=== PATIENT | male | born 1945 | race Caucasian/White ===

== ENCOUNTER 2017-12-21 09:57 | Emergency (ER) | payer MEDICARE, OTHER ==
[2017-12-21] MEDS ORDERED: Aspirin 81 mg CHEW TAB* 81 MG TAB.CHEW PO ONE (10:24)
--- NOTE | 2017-12-21 10:24 | ED ---
HPI Chest Pain - HPI Summary HPI Summary: This patient is a 72 year old M [facility] by with a chief complaint of intermittent right anterior chest pain described as pressure , radiating to the jaw lasting for a few minutes at the time for the past two weeks with increasing frequency. Pain is 2/10 in severity. Reports SOB and headache with onset of chest pain. Reports increased fatigue and decreased exercise tolerance. Denies history of blood clots. Had cardiac stent placed in 2013. Reports significant FMHx for cardiac disease. Patient has taken 81mg of ASA today. Patient went to [facility] roughly 7 days ago and was told to come to the ED is symptoms persist. Dr. Zamarripa is patient's sole buffer. - History of Current Complaint Chief Complaint: EDChestPainROMI Time Seen by Provider: 12/21/17 10:11 Hx Obtained From: Patient Onset/Duration: Started Weeks Ago Timing: Intermittent, Lasting Minutes Pain Intensity: 2 Pain Scale Used: 0-10 Numeric Chest Pain Location: Right Anterior Chest Pain Radiates: Yes Chest Pain Radiates To:: Jaw Character: Pressure/Squeezing Aggravating Factor(s): Nothing Alleviating Factor(s): Nothing Associated Signs and Symptoms: Positive: Chest Pain, Headaches, Shortness of Breath - Allergy/Home Medications Allergies/Adverse Reactions: Allergies Allergy/AdvReac Type Severity Reaction Status Date / Time atorvastatin [From Lipitor] Allergy Muscle Ache Verified 12/21/17 10:42 nefazodone [From Serzone] Allergy See Comment Verified 12/21/17 10:42 rofecoxib [From Vioxx] Allergy Difficulty Verified 12/21/17 10:42 Breathing PMH/Surg Hx/FS Hx/Imm Hx Endocrine/Hematology History: Denies: Hx Diabetes Cardiovascular History: Reports: Hx Coronary Artery Disease, Hx Hypercholesterolemia, Hx Hypertension Denies: Hx Angina, Hx Myocardial Infarction, Hx Valvular Heart Disease Respiratory History: Denies: Hx Asthma, Hx Chronic Obstructive Pulmonary Disease (COPD) GI History: Reports: Hx Diverticulosis History: Reports: Hx Kidney Stones, Hx Renal Disease - kidney stones Psychiatric History: Reports: Hx Depression - Surgical History Surgery Procedure, Year, and Place: lt hip,rotar cuff left,cardiac stent, HX LEFT HIP AND FEMUR FX Infectious Disease History: No Infectious Disease History: Denies: Traveled Outside the [place] in Last 30 Days - Family History Known Family History: Positive: Cardiac Disease - father - CAD, mother of [place] age 72, sister [place], Other - father - [place] - Social History Alcohol Use: None Substance Use Type: Reports: None Smoking Status (MU): Never Smoked Tobacco Have You Smoked in the Last Year: No Review of Systems Positive: Fatigue, Other - decreased exercise tolerance Positive: Dental Pain Positive: Chest Pain Positive: Shortness Of Breath All Other Systems Reviewed And Are Negative: Yes Physical Exam - Summary Physical Exam Summary: General: well-appearing, no pain distress Skin: warm, color reflects adequate perfusion, dry Head: normal Eyes: EOMI, FATUMA ENT: normal Neck: supple, nontender Respiratory: CTA, breath sounds present Cardiovascular: RRR Abdomen: soft, nontender Bowel: present Musculoskeletal: normal, strength/ROM intact Neurological: sensory/motor intact, A&O x3 Psychological: affect/mood appropriate Triage Information Reviewed: Yes Vital Signs On Initial Exam: Initial Vitals Temp Pulse Resp BP Pulse Ox 97.8 F 63 16 132/81 97 12/21/17 09:57 12/21/17 09:57 12/21/17 09:57 12/21/17 09:57 12/21/17 09:57 Vital Signs Reviewed: Yes - Hesham Coma Scale Best Eye Response: 4 - Spontaneous Best Motor Response: 6 - Obeys Commands Best Verbal Response: 5 - Oriented Coma Scale Total: 15 Diagnostics - Vital Signs Vital Signs Temp Pulse Resp BP Pulse Ox 12/21/17 09:57 97.8 F 63 16 132/81 97 - Laboratory Result Diagrams: 12/21/17 10:33 12/21/17 10:33 Lab Statement: Any lab studies that have been ordered have been reviewed, and results considered in the medical decision making process. - Radiology CXR Radiology Interpretation Completed By: Radiologist - #. Stigmata of probable obstructive lung disease. #. No acute cardiopulmonary process evident. ED Physician has reviewed this report. - CT Head/Neck CTA CT Interpretation Completed By: Radiologist - #. Normal variation as described. #. No intracranial arterial large vessel occlusion or hemodynamically significant stenosis. ED Physician has reviewed this report. Chest CTA CT Interpretation Completed By: Radiologist - #. Small burden of acute pulmonary emboli at the RIGHT middle lobe. #. Results discussed with Dr. Olea in the ED 12/21/2017 1:10 PM EDT ED Physician has reviewed this report. - EKG 1035 Cardiac Rate: Bradycardia - [address] Segment: Normal Ectopy: None Re-Evaluation - Re-Evaluation First Re-Evaluation Time: 13:35 Comment: Patient is informed of results and admission. Chest Pain Course/Dx - Course Course Of Treatment: DISCUSSED RESULTS WITH THE PATIENT AND CONSULTED HOSPITALIST. THE HOSPITALIST DISCHARGED THE PATIENT. - Diagnoses Provider Diagnoses: Pulmonary embolism, Chest pain - Provider Notifications Discussed Care Of Patient With: David Wilson MD - hospitalist Time Discussed With Above Provider: 13:15 Instructed by Provider To: Admit As Inpatient - will see in ED Discharge - Sign-Out/Discharge Documenting (check all that apply): Patient Departure - Discharge Plan Condition: Stable Disposition: HOME Prescriptions: Nitroglycerin TAB 0.4 MG* 0.4 mg SL . NEEDED PRN #20 tab PRN Reason: Pain - Chest Rivaroxaban TAB(*) [Xarelto 15 mg(*)] 15 mg PO BID #42 tab Rivaroxaban TAB(*) [Xarelto 20 mg] 20 mg PO DAILY #30 tab Patient Education Materials: Pulmonary Embolism (ED) Referrals: Mason Arias DO [Medical Doctor] - 12/27/17 Jaciel Benitez MD [Primary Care Provider] - (Please see within the next 5 days. ) - Billing Disposition and Condition Condition: STABLE Disposition: Home - Attestation Statements Document Initiated by Scribe: Yes Documenting Scribe: Lisa Flores Provider For Whom Scribe is Documenting (Include Credential): Dev Mello MD Scribe Attestation: I, Lisa Flores, scribed for Dev Mello MD on 12/21/17 at 1839. Scribe Documentation Reviewed: Yes Provider Attestation: The documentation as recorded by the Lisa fall accurately reflects the service I personally performed and the decisions made by me, Dev Mello MD
[2017-12-21] MEDS ORDERED: NS 0.9% 1000 ML* 1,000 ML IV SCH (10:30)
[2017-12-21 10:43] LABS: ABS Basophils 0.1 10^3/ul (0-0.2); ABS Eosinophils 0.1 10^3/ul (0-0.6); ABS Lymphocytes 1.4 10^3/ul (1.0-4.8); ABS Monocytes 0.6 10^3/ul (0-0.8); ABS Neutrophils 4.2 10^3/ul (1.5-7.7); ABS Nucleated RBC 0 10^3/ul; Eosinophil % 0.9 % (0-6); Hematocrit 41 % (42-52); Lymphocyte % 22.6 % (25-47); Mean Corpuscular HGB Conc 34 g/dl (31-36); Mean Corpuscular Hemoglobin 33 pg (27-31); Mean Corpuscular Volume 95 fL (80-94); Mean Platelet Volume 8.2 um3 (7.4-10.4); Nucleated Red Blood Cells % 0.1; Platelet Count 174 10^3/ul (150-450); Red Blood Count 4.29 10^6/ul (4.00-5.40); Red Cell Distribution Width 13 % (10.5-15); White Blood Count 6.3 10^3/ul (3.5-10.8)
--- NOTE | 2017-12-21 10:46 | RAD ---
Indication: Chest pain that began intermittently a couple of weeks ago. Coronary artery disease. Comparison: January 09, 2016 CT Technique: Upright AP 1030 hours Report: Elevated lung volumes and rarefaction of the upper lung zone interstitial markings. No focal pulmonary lesion, compelling alveolar consolidation, pleural effusion, pneumothorax. Negative for cardiomegaly. Unremarkable central pulmonary vasculature and mediastinal contours accounting for leftward rotation. IMPRESSION: #. Stigmata of probable obstructive lung disease. #. No acute cardiopulmonary process evident.
[2017-12-21 10:58] LABS: INR 0.88 (0.77-1.02)
[2017-12-21 11:01] LABS: EGFR Non-African American 80.4 (>60)
[2017-12-21] MEDS ORDERED: NS 0.9% 1000 ML* 1,000 ML IV ONE (11:21)
[2017-12-21] MEDS ORDERED: Iohexol 350* (CONTRAST) 500 ML MDV IV ONE ×2 (11:29→11:33)
--- NOTE | 2017-12-21 13:08 | RAD ---
INDICATION: Head and neck pain. Positive d-dimer. Cardiac disease. COMPARISON: No relevant prior exams available on the [facility] [place] [place] [facility] for comparison. TECHNIQUE: Noncontrast CT of the head. Subsequently CT images were obtained from the aortic arch to the vertex of the head with 80 mL Omnipaque 350 IV contrast. Arterial phase of enhancement. Multiplanar reformation including maximum intensity projection. 3-D arterial volume rendering. Stenosis estimations based on denominator of distal arterial diameter. NECK ANGIOGRAM REPORT: Incidental note of heterogeneous thyroid gland with 0.9 cm nodule at the RIGHT thyroid lobe. Negative for ostial stenosis of the aortic arch branch vessels. Minimal atherosclerotic plaque at the RIGHT carotid bulb and proximal internal carotid artery without resulting stenosis by NASCET criteria. Artifact from dental hardware partially obscures the mid segments of the bilateral internal carotid arteries. Mild calcific and noncalcific plaque at the LEFT carotid bulb and proximal internal carotid artery without resulting stenosis by NASCET criteria. Calcific plaque at the ostium of the RIGHT vertebral artery with small vessel size limiting quantification of degree of stenosis. Normal opacification of the RIGHT and dominant LEFT vertebral arteries with both vertebral arteries contributing to the basilar artery. Mild calcific plaque at the distal segment of the LEFT vertebral artery with up to 50% stenosis resulting. No arterial dissection evident. Markedly severe degenerative spondylosis at C4-C5 through C6-C7 with associated mild acquired central canal stenosis and severe LEFT and moderate RIGHT foraminal stenosis at all 3 levels. NECK ANGIOGRAM IMPRESSION: #. Negative for carotid stenosis by NASCET criteria. #. Calcific plaque at the ostium of the RIGHT vertebral artery with small vessel size limiting quantification of degree of stenosis. #. Mild calcific plaque at the distal segment of the LEFT vertebral artery with up to 50% stenosis resulting. Noncontrast head CT REPORT: Unremarkable cerebral sulci, ventricles, and basal cisterns for age. Negative for davison matter white matter obscuration, intra or extra-axial hemorrhage, or mass effect. Unremarkable orbital contents. Unremarkable calvarium and skull base and clear visualized paranasal sinuses and mastoid air spaces. Unremarkable scalp. HEAD ANGIOGRAM REPORT: Calcific plaque at the carotid siphons with suggestion of less than 50% stenosis resulting. Unremarkable M1 and M2 segments of the middle cerebral arteries. 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 Unremarkable basilar artery and cerebellar artery origins. Patent bilateral posterior cerebral arteries are supplied primarily by the posterior circulation with normal variant hypoplastic posterior communicating arteries. No intracranial aneurysm or vascular malformation evident. Normal opacification of the dural venous sinuses. HEAD ANGIOGRAM IMPRESSION: #. Normal variation as described. #. No intracranial arterial large vessel occlusion or hemodynamically significant stenosis. CPT II: CPT II Codes: 3100F
--- NOTE | 2017-12-21 13:14 | RAD ---
INDICATION: Head and neck pain. Chest pain. Positive d-dimer. COMPARISON: December 20, 2009 CT angiogram. TECHNIQUE: Multidetector CT images were obtained from the lung apices to the upper abdomen with 66 mL Omnipaque 350 IV contrast. Pulmonary angiogram protocol. Multiplanar reformation including with maximum intensity projection. REPORT: Mild atelectasis at the azygos esophageal recess secondary to volume loss resulting from thoracic spine degenerative spondylosis and mild LEFT greater than RIGHT dependent atelectasis. No suspicious focal pulmonary lesions. Negative for pleural effusions or pneumothorax. Negative for thoracic lymphadenopathy, cardiomegaly, pericardial effusion. Mild atherosclerotic plaque of normal diameter abdominal aorta. Negative for aortic dissection. Acute pulmonary emboli visualized at the RIGHT middle lobe extending into the medial lateral segmental pulmonary arteries. No additional pulmonary emboli visualized. Images through the upper abdomen are remarkable for symmetric pyelographic phase contrast at the kidneys. Simple cortical cyst at the midpole of the RIGHT kidney noted. Thoracic degenerative spondylosis. Negative for suspicious focal osseous lesions. IMPRESSION: #. Small burden of acute pulmonary emboli at the RIGHT middle lobe. #. Results discussed with Dr. Olea in the ED 12/21/2017 1:10 PM EDT
[2017-12-21 17:07] VITALS: BP 117/76
--- NOTE | 2017-12-21 21:28 | CONS ---
CONSULTATION REPORT: DATE OF CONSULT: 12/21/17 CONSULTING PHYSICIAN: Jason Wilson MD REFERRING PHYSICIAN: Dev Olea MD, emergency room physician. CHIEF COMPLAINT: Chest pain; dyspnea on exertion; teeth pain. REASON FOR CONSULT: Management of acute pulmonary embolism and chest pain in the setting of history of coronary artery disease with stents. HISTORY OF PRESENT ILLNESS: Dev Solorzano is a 72-year-old male with past medical history of coronary artery disease with stent to the LAD in 2013 and last left heart cath in 2014 with 55% to 60% LAD stenosis, 75% to 80% RCA and 85 % to 90% mid acute marginal branch, he for the last 2 weeks has had intermittent chest discomfort 2/10 that is nonexertional but sometimes seems to radiate to his upper teeth. No radiation to his jaw or either shoulder or down the arms. He runs/jogs almost every day and the pain is never correlated with this exertion. For these symptoms, he has been trying to re-establish with his research and development manager Dr. 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 Mason Arias on 12/27, at 8 a.m. Because of his continued symptoms, he presented to [facility] [place] [facility] where he was found on further workup to have a small clot burden right middle lobe pulmonary embolism on CT angiogram. Because of his complex cardiac history, emergency room provider consulted hospitalist service to manage pulmonary embolism and discuss management with the patient. I had a long conversation with Dev today as he had multiple concerns. He is very particular about his care and has felt somewhat off-put by the change in his cardiology outpatient providers and felt like it was hard to be seen. Multiple questions were answered. Additional workup included troponins that were negative x2 at 0.00 and EKG with no ischemic changes. He also had a head CTA given his headache which showed negative for carotid stenosis by NASCET criteria. A calcified plaque at the ostium of the right vertebral artery with small vessel size limiting quantification of the degree of stenosis and mild calcific plaque at the distal segment of the left vertebral artery with up to 50 % stenosis resulting in the head angiogram with normal variation, more specifically calcific plaque at the carotid segments with the suggestion of less than 50% stenosis resulting with unremarkable M1 and M2 segments of the middle cerebral arteries. 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 Of note, his D-dimer was 344. He had a negative BNP of 39, creatinine was 0.92 with the GFR of 80. He is being recommended starting Xarelto 15 mg b.i.d. for 21 days followed by 20 mg daily. He denied any known history of blood clots and this seemed to be an unprovoked incident. He should followup with his primary care provider to consider hypercoagulability workup or other age appropriate malignancy screening if not completed. He did report that he has had a colonoscopy and the last test was a Cologuard. PAST MEDICAL HISTORY: CAD, hyperlipidemia, hypertension, depression, bipolar disorder. MEDICATIONS: Include: 1. Lamictal 300 mg q.p.m. 2. Zoloft 200 mg p.o. q.p.m. 3. Abilify 2 mg p.o. q.p.m. 4. Trazodone 50 mg p.o. q.h.s. 5. Ritalin 20 mg daily in afternoon. 6. Klonopin 0.5 mg daily in afternoon. 7. Aspirin 81 mg daily. 8. Multivitamin. 9. Probiotic. Of note He has picked up a prescription of Livalo but has not started taking it ALLERGIES: He has demonstrated multiple intolerances to STATINS and has been on LIPITOR, CRESTOR and PRAVASTATIN before with resultant muscle pains. He has VIOXX allergy of difficulty breathing. FAMILY HISTORY: Extensive cardiac history with both mother and father dying of heart attacks, mother in the 60s and father in the 70s, also had cancer. Brother and sister also have heart problems including the younger sister with 5 stents and overall not doing well. They were all smokers, overweight with sedentary lifestyles. SOCIAL HISTORY: The patient follows a Mediterranean diet. Never smoker, never drinker, no drug use. Frequent runner. He is accompanied by his who is his medical surrogate, Estefany. He desires to be a full code. REVIEW OF SYSTEMS: A complete 14-point review of systems negative except as per HPI. He says that he gets sometimes dyspneic with exercise but never chest pain. He currently has the pain in his upper teeth. He denies any leg swelling , orthopnea or paroxysmal nocturnal dyspnea. He has not been coughing. No fevers, chills. PHYSICAL EXAM: General Appearance: No acute distress. Vital Signs: Pulse rate 60, respiratory rate 18, and blood pressure 126/87, satting 96% on room air , temperature 97.8. HEENT: Normocephalic, atraumatic. Pupils equal, round, and reactive to light. Extraocular motions intact. No scleral icterus. Moist mucous membranes. Lungs: Clear to auscultation bilaterally with no wheezing, rales, or rhonchi. Cardiovascular: Regular rate and rhythm. No murmurs, rubs , or gallops. Abdomen: Soft, nontender, nondistended. Extremities: Warm, well perfused. No peripheral edema. Skin: Multiple tattoos. Neuro: Cranial nerves II through XII intact. Moving all extremities. DIAGNOSTIC STUDIES/LAB DATA: White count 6.3, hemoglobin 14.0, hematocrit 41, platelets 174. INR 0.88. Sodium 137, potassium 4.3, chloride 105, carbon dioxide 24, BUN 20, creatinine 0.92, glucose 108. AST 27, ALT 19, alk phos 55, creatine kinase 254, troponin 0.00 x2, BNP 39, lipase 40, TSH 2.51. Imaging: Chest x-ray demonstrated stigmata of probable obstructive lung disease. No acute cardiopulmonary process. CT chest angiogram demonstrated small burden of acute pulmonary embolism at the right middle lobe extending into the medial, lateral segmental pulmonary arteries. Head CT as above in HPI. ASSESSMENT AND PLAN: Dev Solorzano is a 72-year-old male with past medical history significant for stents and worsened coronary artery disease on last heart cath in 2014, but with a negative/low risk nuclear stress test in 2016 ( January), he presents with 2 weeks of intermittent chest discomfort and dyspnea on exertion, occasional headaches. The chest pain is never exertional and he has been found to have a small burden right middle lobe pulmonary embolism seemingly unprovoked. He is being recommended to start on Xarelto 15 mg twice a day for 3 weeks and then transition to 20 mg daily. He should followup with Dr. Jaciel Benitez, his primary care provider to consider hypercoagulability or other age appropriate malignancy screenings to determine more fully the etiology of his lung clot. Over 30 minutes of time was spent specifically answering questions about his cardiac status and plan of care going forward. He already has a cardiology appointment with Dr. Mason Arias on 12/27/17 at 8 a.m. This will be a new provider for him after previously following up with Dr. Zamarripa. The patient ruled out for acute coronary syndrome. He was being given prescription also for nitroglycerin 0.4 mg sublingual q.5 minutes p.r.n. for anginal exertional type chest pain. He has a prescription for Livalo at home which he has not started yet, but plans to in the near future. Given the progression of his coronary artery disease between 2013 and 2014, he very well may need further evaluation of his coronary artery disease as an outpatient, but a stress test would likely be contraindicated in the setting of his acute pulmonary embolism. TIME SPENT ON CONSULT: 75 minutes. [id number]/[facility] #: [id number] JOEY
== END 2017-12-21 17:08 | disposition home or self-care (01) ==
LOC: ED 09:57
DX: I26.99 Other pulmonary embolism without acute cor pulmonale (principal); R07.9 Chest pain, unspecified; R00.1 Bradycardia, unspecified; Z88.8 Allergy status to other drugs, medicaments and biological substances
CPT/HCPCS: 36415; 70496; 70498; 71045; 71275; 80053; 82550; 82553; 83605; 83690; 83735; 83880; 84443; 84484; 85025; 85379; 85610; 85730; 93005; 99283; A9270-GY; Q9967

== ENCOUNTER 2020-05-03 09:27 | Inpatient (IN) ==
[2020-05-03 10:29] LABS: ABS Basophils 0.1 10^3/ul (0-0.2); ABS Eosinophils 0.2 10^3/ul (0-0.6); ABS Lymphocytes 1.3 10^3/ul (1.0-4.8); ABS Monocytes 0.6 10^3/ul (0-0.8); ABS Neutrophils 3.8 10^3/ul (1.5-7.7); Hematocrit 40 % (42-52); Hemoglobin 13.7 g/dL (14.0-18.0); Lymphocyte % 22.1 %; Mean Corpuscular HGB Conc 34 g/dL (31-36); Mean Corpuscular Hemoglobin 33 pg (27-31); Mean Corpuscular Volume 95 fL (80-94); Mean Platelet Volume 8.5 fL (7.4-10.4); Platelet Count 201 10^3/uL (150-450); Red Blood Count 4.17 10^6 /uL (4.18-5.48); Red Cell Distribution Width 13 % (10-15); White Blood Count 5.9 10^3/uL (3.5-10.8)
[2020-05-03 10:49] LABS: Albumin 3.9 g/dL (3.2-5.2); Albumin/Globulin Ratio 1.3 (1-3); BUN/Creatinine Ratio 20.2 (8-20); Calcium 9.1 mg/dL (8.6-10.3); EGFR African American 107.5 (>60); EGFR Non-African American 88.8 (>60); Globulin 3.1 g/dL (2-4); Total Bilirubin 0.3 mg/dL (0.2-1.0)
[2020-05-03] MEDS ORDERED: Iohexol 300 (CONTRAST) 10 ML SDV IV ONE (11:07)
[2020-05-03 12:12] LABS: Urine Appearance Clear; Urine Bilirubin Negative (Negative); Urine Blood Negative (Negative); Urine Color Yellow; Urine Glucose Negative (Negative); Urine Ketones Negative (Negative); Urine Nitrite Negative (Negative); Urine Protein Negative (Negative); Urine Specific Gravity 1.013 (1.010-1.030); Urine Urobilinogen Negative (Negative)
[2020-05-03] MEDS ORDERED: Piperacillin/Tazobac ADVAN 3.375 GM in NS 0.9% 100 ml BAG 100 ML IV ONE (13:04)
[2020-05-03] MEDS ORDERED: Ondansetron 4 mg VIAL 2 MG/ML 2 ml VIAL IV PRN (14:31)
[2020-05-03] MEDS ORDERED: Zosyn per Pharmacy NOTE FOLLOW UP SCH (15:00)
[2020-05-03] MEDS ORDERED: Enoxaparin 40 MG/0.4 ML SYR SUBCUT SCH (16:00)
[2020-05-03] MEDS: NS 0.9% 1000 ml BAG 1,000 ML IV SCH (16:39)
[2020-05-03 17:08] LABS: Folate 18.95 ng/mL (>3.99)
[2020-05-03] MEDS: ZOSYN 3.375 GM Q8H per EXTENDED INFUSION IV SCH (17:26)
[2020-05-04] MEDS: ZOSYN 3.375 GM Q8H per EXTENDED INFUSION IV SCH ×2 (01:40→09:45)
[2020-05-04] MEDS: NS 0.9% 1000 ml BAG 1,000 ML IV SCH (02:49)
[2020-05-04 05:11] LABS: ABS Basophils 0.1 10^3/ul (0-0.2); ABS Eosinophils 0.2 10^3/ul (0-0.6); ABS Monocytes 0.5 10^3/ul (0-0.8); ABS Neutrophils 3.3 10^3/ul (1.5-7.7); Eosinophil % 3.4 %; Hematocrit 36 % (42-52); Hemoglobin 12.3 g/dL (14.0-18.0); Lymphocyte % 32.9 %; Mean Corpuscular HGB Conc 34 g/dL (31-36); Mean Corpuscular Hemoglobin 33 pg (27-31); Mean Corpuscular Volume 96 fL (80-94); Mean Platelet Volume 8.4 fL (7.4-10.4); Platelet Count 178 10^3/uL (150-450); Red Blood Count 3.76 10^6 /uL (4.18-5.48); Red Cell Distribution Width 13 % (10-15)
[2020-05-04 08:12] VITALS: BP 143/75
[2020-05-04] MEDS ORDERED: Aspirin EC 81 mg TAB.EC (enteric coated) PO SCH (09:00)
[2020-05-04] MEDS ORDERED: Vitamin THERAPEUTIC TAB PO SCH (09:00)
[2020-05-04] MEDS ORDERED: COENZYME Q10 200 MG PO SCH (09:00)
== END 2020-05-04 10:30 | disposition home or self-care (01) | DRG 392 ==
LOC: ED 09:27 → SSU 14:31
PROVIDERS: ADMIT Internal Medicine; ATTEND Internal Medicine

== ENCOUNTER 2021-09-09 15:14 | Inpatient (IN) ==
[2021-09-09 15:32] LABS: ABS Eosinophils 0.2 10^3/ul (0-0.6); ABS Lymphocytes 1.9 10^3/ul (1.0-4.8); ABS Monocytes 0.6 10^3/ul (0-0.8); ABS Neutrophils 4.5 10^3/ul (1.5-7.7); Eosinophil % 2.1 %; Hematocrit 37 % (42-52); Hemoglobin 12.3 g/dL (14.0-18.0); Lymphocyte % 26.4 %; Mean Corpuscular HGB Conc 33 g/dL (31-36); Mean Corpuscular Hemoglobin 32 pg (27-31); Mean Corpuscular Volume 95 fL (80-94); Mean Platelet Volume 8.5 fL (7.4-10.4); Nucleated Red Blood Cells % 0.1; Platelet Count 175 10^3/uL (150-450); Red Blood Count 3.88 10^6 /uL (4.18-5.48); Red Cell Distribution Width 13 % (10-15); White Blood Count 7.3 10^3/uL (3.5-10.8)
[2021-09-09] MEDS ORDERED: Heparin - STEMI 5,000 UNITS/ML 1 ml VIAL IV ONE (15:44)
[2021-09-09] MEDS ORDERED: niCARdipine 0.1MG/ML IVPREMIX 20 MG/200 ML BAG IV ONE (15:47)
[2021-09-09] MEDS ORDERED: Iohexol 350 (CONTRAST) 50 ML SDV IV ONE (15:47)
[2021-09-09] MEDS ORDERED: nitroGLYCERIN DRIP 25,000 MCG/250 ML BTL ONE (15:47)
[2021-09-09] MEDS ORDERED: Heparin 2 UNITS/ML 1000 mls 3,000 ML IV ONE (15:47)
[2021-09-09] MEDS ORDERED: Heparin 1,000 UNIT/ML 10 ml (10,000 UNITS) CATHLAB/DIALYSIS ONE (15:47)
[2021-09-09] MEDS ORDERED: Lidocaine 1% MPF 5 ML VIAL ONE (15:48)
[2021-09-09] MEDS ORDERED: Amiodarone 150 mg IVPREMIX 150 MG/100 ML BAG IV ONE ×2 (15:55→15:58)
[2021-09-09 16:00] LABS: Activated Partial Thrombo Time 25.4 seconds (26.0-38.0); INR 1.04 (0.86-1.15)
[2021-09-09] MEDS ORDERED: fentaNYL 100 mcg/2 ml 50 MCG/ML VIAL ONE (16:10)
[2021-09-09] MEDS ORDERED: Midazolam 5 mg/5 ml VIAL 1 mg/ml 5 ml VIAL (5 mg) ONE (16:10)
[2021-09-09] MEDS ORDERED: Heparin 2 UNITS/ML 1000 mls 1,000 ML IV ONE (16:18)
[2021-09-09 16:41] LABS: Albumin 3.6 g/dL (3.2-5.2); Calcium 8.7 mg/dL (8.6-10.3); Magnesium 1.9 mg/dL (1.9-2.7); Potassium 4.2 mmol/L (3.5-5.0); Total Bilirubin 0.3 mg/dL (0.2-1.0)
[2021-09-09] MEDS ORDERED: Eptifibatide IV (Load dose) 2 MG/ML 10 ml VIAL ONE (16:42)
[2021-09-09 16:47] LABS: Albumin/Globulin Ratio 1.6 (1-3); Globulin 2.2 g/dL (2-4); Total Protein 5.8 g/dL (6.4-8.9); eGFR CKD-EPI 75.7 (>60)
[2021-09-09] MEDS ORDERED: Atropine 0.1 MG/ML 10 ml SYR (1 mg) ONE (16:57)
[2021-09-09] MEDS ORDERED: Ondansetron 4 mg VIAL 2 MG/ML 2 ml VIAL IV PRN (17:01)
[2021-09-09 18:58] LABS: High Sensitivity Troponin 1 Hr 264 pg/mL (<20)
[2021-09-09] MEDS ORDERED: NS 0.9% 500 ML BAG IV ONE (21:00)
[2021-09-09] MEDS ORDERED: Norepinephrine 16MCG/ML BAGD5W 4,000 MCG/250 ML BAG IV ONE (22:34)
[2021-09-09] MEDS ORDERED: Norepinephrine 16MCG/ML BAGD5W 4,000 MCG/250 ML BAG IV SCH (23:00)
[2021-09-09 23:16] LABS: Hematocrit 33 % (42-52); Hemoglobin 11.4 g/dL (14.0-18.0)
[2021-09-09 23:36] LABS: Albumin 3.5 g/dL (3.2-5.2); Calcium 8.5 mg/dL (8.6-10.3); Magnesium 1.9 mg/dL (1.9-2.7); Potassium 4.1 mmol/L (3.5-5.0); Total Bilirubin 0.6 mg/dL (0.2-1.0)
[2021-09-09 23:42] LABS: Albumin/Globulin Ratio 1.7 (1-3); Globulin 2.1 g/dL (2-4); Total Protein 5.6 g/dL (6.4-8.9); eGFR CKD-EPI 91.5 (>60)
[2021-09-10 00:18] LABS: Activated Partial Thrombo Time 33.8 seconds (26.0-38.0); Fibrinogen 291.3 mg/dL (110.8-404.3); INR 1.05 (0.86-1.15)
[2021-09-10 01:48] LABS: Hemoglobin 11.4 g/dL (14.0-18.0)
[2021-09-10 01:49] LABS: Hematocrit 33 % (42-52)
[2021-09-10 01:52] LABS: ABS Lymphocytes 1.4 10^3/ul (1.0-4.8); ABS Neutrophils 8.6 10^3/ul (1.5-7.7); Eosinophil % 0.2 %; Lymphocyte % 12.9 %; Mean Corpuscular HGB Conc 33 g/dL (31-36); Mean Corpuscular Hemoglobin 31 pg (27-31); Mean Corpuscular Volume 96 fL (80-94); Mean Platelet Volume 9.1 fL (7.4-10.4); Nucleated Red Blood Cells % 0.1; Platelet Count 172 10^3/uL (150-450); Red Cell Distribution Width 13 % (10-15); White Blood Count 11.1 10^3/uL (3.5-10.8)
[2021-09-10 02:27] VITALS: BP 149/79
== END 2021-09-10 02:30 | disposition short-term general hospital (02) | DRG 246 ==
LOC: ED 15:14 → CHICATH 15:57 → ICU 16:13
PROVIDERS: ADMIT Internal Medicine; ATTEND Internal Medicine